=== PATIENT | female | born 1975 | race Caucasian/White ===

== ENCOUNTER 2016-05-04 16:51 | Emergency (ER) | payer MEDICAID ==
[~2016-05-04] VITALS: Ht 154.9 cm; Wt 55.3 kg
[2016-05-04 17:00] VITALS: BP 131/50
== END 2016-05-04 20:38 | disposition left against medical advice (07) ==
LOC: ER 16:56
DX: K08.89 Other specified disorders of teeth and supporting structures (principal); Z53.21 Procedure and treatment not carried out due to patient leaving prior to being seen by health care provider